=== PATIENT | female | born 1950 | race Caucasian/White ===

== ENCOUNTER 2019-03-22 10:48 | Emergency (ER) | payer OTHER ==
[~2019-03-22] VITALS: Ht 160 cm; Wt 79.8 kg
[~2019-03-22 10:48] MED LIST: FLOVENT13 G1 IH; PULMICORT1 MG/2 ML IH; TUSSIONEX PENNKI5 ML PO; VENTOLIN HFA18 GM IH; ZITHROMAX500 MG PO
== END 2019-03-22 13:31 | disposition home or self-care (01) ==
LOC: ER 10:48 → EMR PED 11:16 → ER 13:31
DX: R05 Cough (principal); R07.81 Pleurodynia; R06.89 Other abnormalities of breathing

== ENCOUNTER 2019-07-14 14:49 | Emergency (ER) | payer OTHER ==
[~2019-07-14] VITALS: Ht 160 cm; Wt 79.4 kg
[2019-07-14] MEDS ORDERED: FORTAMET500 MG (15:10)
[2019-07-14] MEDS ORDERED: METFORMIN HCL500 MG (15:10)
[2019-07-14] MEDS ORDERED: GLIMEPIRIDE1 MG (15:11)
[2019-07-14] MEDS ORDERED: COZAAR25 MG (15:11)
[2019-07-14] MEDS ORDERED: VITAMIN D400 UNI2 (15:12)
[2019-07-14] MEDS ORDERED: LIPITOR20 MG (15:12)
[2019-07-14] MEDS ORDERED: FOSAMAX70 MG (15:12)
[2019-07-14] MEDS ORDERED: SYNTHROID112 MCG (15:12)
[2019-07-28] MEDS ORDERED: DICLOFENAC SODI75 MG PO (05:38)
== END 2019-07-14 19:05 | disposition home or self-care (01) ==
LOC: ER 14:49
DX: J45.998 Other asthma (principal)

== ENCOUNTER → 2019-07-28 | Emergency (ER) | payer OTHER ==
[~2019-07-28] VITALS: Ht 162.6 cm; Wt 97.5 kg
[~2019-07-28] MED LIST changes: +COZAAR25 MG; +DICLOFENAC SODI75 MG PO; +FORTAMET500 MG; +FOSAMAX70 MG; +GLIMEPIRIDE1 MG; +LIPITOR20 MG; +METFORMIN HCL500 MG; +SYNTHROID112 MCG; +VITAMIN D400 UNI2
== END | disposition home or self-care (01) ==
LOC: ER 04:38
DX: M54.5 Low back pain (principal)